=== PATIENT | female | born 1975 | race Caucasian/White ===

== ENCOUNTER 2016-07-17 15:01 | Emergency (ER) | payer OTHER ==
--- NOTE | 2016-07-17 16:24 | EDPHY ---
H & P Time Seen by Provider: 07/17/16 15:41 HPI/ROS: CHIEF COMPLAINT: Needlestick left thumb HISTORY OF PRESENT ILLNESS: 41-year-old female presents to the emergency department who is a nurse at [employer] and was stuck with a small insulin needle at [employer]. Patient father report with her employer and was sent to [facility] for evaluation. Patient has no complaints. The incident happened just prior to arrival. ROS: Denies numbness or tingling in her fingers, retained foreign body. Past Medical/Surgical History: Negative Social History: and lives in [place]. Works at [employer] Smoking Status: Never smoked Physical Exam: On examination there is no signs of infection. There is no obvious puncture wound noted to the distal palmar aspect of her left thumb. No active bleeding noted. Full range of motion of her thumb. The other fingers appear on injured. No signs of cellulitis. Constitutional: Initial Vital Signs Temperature (C) 36.5 C 07/17/16 15:05 Heart Rate 66 07/17/16 15:05 Respiratory Rate 18 07/17/16 15:05 Blood Pressure 121/78 H 07/17/16 15:05 O2 Sat (%) 99 07/17/16 15:05 O2 Delivery Mode Room Air Allergies/Adverse Reactions: No Known Allergies Allergy (Unverified 07/17/16 15:05) Home Medications: Medication Instructions Recorded NK [No Known Home Meds] 07/17/16 MDM/Departure - [facility] ED Course/Re-evaluation: 41-year-old female presents with needlestick at work. The patient had laboratory studies drawn. She understands to have the source patient's blood drawn as well. She was given follow-up information for [facility] as well as [facility]. I offered post exposure prophylaxis and the patient declined. The patient will watch for signs or symptoms of infection and return if she has any concerns. - Depart Disposition: Home, Routine, Self-Care Clinical Impression: Needlestick left thumb Condition: Good Instructions: Needle Stick Injuries (ED) Additional Instructions: Call for the results of your laboratory studies tomorrow, . Follow up with occupational health. Make sure that the source patient has their blood drawn as well. Follow up at [facility], infectious disease, if you have any other concerns. Referrals: Dominique Samuel MD [Medical Doctor] - As per Instructions (Infectious disease doctor on-call)
[2016-07-17 16:32] VITALS: BP 121/93; PULSE 86; RESP 16; TEMP 97.9; O2SAT 97
[2016-07-18 03:30] LABS: HEPATITIS B SURFACE ANTIBODY POSITIVE (NEGATIVE)
== END 2016-07-17 16:31 | disposition home or self-care (01) ==
DX: S69.92XA Unspecified injury of left wrist, hand and finger(s), initial encounter (principal); W46.0XXA Contact with hypodermic needle, initial encounter; Y92.69 Other specified industrial and construction area as the place of occurrence of the external cause; Y99.0 Civilian activity done for income or pay; Y93.89 Activity, other specified
CPT/HCPCS: G0472